=== PATIENT | female | born 1980 | race American Indian/Alaskan Native ===

== ENCOUNTER 2018-09-26 18:46 | Day surgery (SDC) | payer BC ==
[2018-09-26] MEDS ORDERED: Sodium Chloride 0.9% 10 ML Syringe FLUSH PRN ×2 (19:31→23:56)
[2018-09-26] MEDS ORDERED: HYDROmorphone 1 MG/ML Syringe IVPUSH ONE ×2 (19:31→21:48)
[2018-09-26] MEDS ORDERED: Ondansetron 4 MG/2 ML SDV IVPUSH ONE (19:31)
--- NOTE | 2018-09-26 19:51 | EDM.PDOC ---
ED HPI GENERAL MEDICAL PROBLEM - General Chief Complaint: Abdominal Pain Stated Complaint: PAIN RIGHT SIDE Time Seen by Provider: 09/26/18 19:21 Source of Information: Reports: Patient, RN Notes Reviewed - History of Present Illness INITIAL COMMENTS - FREE TEXT/NARRATIVE: 38 year old female with onset of R flank and R abd pain about 6 hours ago radiating to R back and also to R groin. Pain is achy, becoming more severe, does not go away. No nausea, vomiting, fever, chills or voiding sx. Pain does not go to L abd or back. Has had prior C section but no other prior surgeries. Does not believe she is . Pain is worse with walking, motion, last meal about 6 hrs ago. Right Flank Pain Score (Numeric/FACES): 10 - Related Data Allergies Allergy/AdvReac Type Severity Reaction Status Date / Time No Known Allergies Allergy Verified 09/26/18 18:58 Home Meds: Home Meds . [No Known Home Meds] 09/26/18 [History] Past Medical History - Past Surgical History Female Surgical History: Reports: Section Social & Family History - Tobacco Use Smoking Status *Q: Never Smoker Second Hand Smoke Exposure: No - Caffeine Use Caffeine Use: Reports: Coffee - Recreational Drug Use Recreational Drug Use: No ED ROS GENERAL - Review of Systems Review Of Systems: See Below Constitutional: Denies: Fever, Chills, Diaphoresis HEENT: Reports: No Symptoms Respiratory: Denies: Shortness of Breath Cardiovascular: Denies: Chest Pain GI/Abdominal: Reports: Abdominal Pain (R flank radiating to R groin). Denies: Constipation, Diarrhea, Melena, Nausea, Vomiting : Reports: No Symptoms Musculoskeletal: Reports: Back Pain Skin: Reports: No Symptoms Neurological: Reports: No Symptoms ED EXAM, RENAL/ - Physical Exam Exam: See Below General Appearance: Alert, Moderate Distress Eye Exam: Bilateral Eye: PERRL Throat/Mouth: Normal Inspection, Normal Oropharynx Head: Atraumatic. No: Facial Swelling Neck: Supple, Full Range of Motion Respiratory/Chest: No Respiratory Distress, Lungs Clear, Normal Breath Sounds Cardiovascular: Regular Rate, Rhythm GI/Abdominal: Soft, Rebound (mild), Tender (mild to moderate tenderness R upper and R lower abd, L abd nontender). No: Guarding Back Exam: CVA Tenderness (R) Extremities: Normal Inspection Neurological: Alert, Oriented, No Motor/Sensory Deficits Skin Exam: Warm, Dry, Normal Color Course - Vital Signs Last Recorded V/S: Last Vital Signs Temp 98.9 F 09/26/18 18:58 Pulse 85 09/26/18 18:58 Resp 24 H 09/26/18 22:12 BP 161/101 H 09/26/18 18:58 Pulse Ox 95 09/26/18 22:12 - Orders/Labs/Meds Orders: Active Orders 24 hr Category Date Time Status Peripheral IV Care [RC] . DIRECTED Care 09/26/18 19:32 Active Sodium Chloride 0.9% [Normal Saline] 1,000 ml Med 09/26/18 21:30 Active IV ONETIME Sodium Chloride 0.9% [Saline Flush] Med 09/26/18 19:31 Active 10 ml FLUSH ASDIRECTED PRN Peripheral IV Insertion Adult [OM.PC] Stat Oth 09/26/18 19:31 Ordered Schedule Procedure [COMM] Stat Oth 09/26/18 21:46 Ordered Schedule Procedure [COMM] Urgent Oth 09/26/18 21:55 Ordered Medication Orders Sodium Chloride (Normal Saline) 1,000 mls @ 999 mls/hr IV ONETIME KISHOR Last Admin: 09/26/18 21:39 Dose: 999 mls/hr Sodium Chloride (Saline Flush) 10 ml FLUSH ASDIRECTED PRN PRN Reason: Keep Vein Open Last Admin: 09/26/18 19:44 Dose: 10 ml Labs: Laboratory Tests 09/26/18 09/26/18 09/26/18 Range/Units 19:10 19:10 19:10 WBC 12.67 H (3.98-10.04) K/mm3 RBC 5.46 H (3.98-5.22) M/mm3 Hgb 13.2 (11.2-15.7) gm/L Hct 41.5 (34.1-44.9) % MCV 76.0 L (79.4-94.8) fl MCH 24.2 L (25.6-32.2) pg MCHC 31.8 L (32.2-35.5) g/dl RDW Std Deviation 41.0 (36.4-46.3) fL Plt Count 255 (182-369) K/mm3 MPV 10.1 (9.4-12.3) fl Neutrophils % (Manual) 71 H (40-60) % Band Neutrophils % 1 (0-10) % Lymphocytes % (Manual) 17 L (20-40) % Atypical Lymphs % 0 % Monocytes % (Manual) 8 (2-10) % Eosinophils % (Manual) 3 (0.7-5.8) % Basophils % (Manual) 0 L (0.1-1.2) Platelet Estimate Adequate RBC Morph Comment Normal Sodium 140 (136-145) mEq/L Potassium 3.9 (3.5-5.1) mEq/L Chloride 103 (98-107) mEq/L Carbon Dioxide 27 (21-32) mEq/L Anion Gap 13.9 (5-15) BUN 12 (7-18) mg/dL Creatinine 0.9 (0.55-1.02) mg/dL Est Cr Clr Drug Dosing 89.85 mL/min Estimated GFR (MDRD) > 60 (>60) mL/min BUN/Creatinine Ratio 13.3 L (14-18) Glucose 118 H (74-106) mg/dL Calcium 9.2 (8.5-10.1) mg/dL Total Bilirubin 0.4 (0.2-1.0) mg/dL AST 23 (15-37) U/L ALT 28 (14-59) U/L Alkaline Phosphatase 109 (46-116) U/L C-Reactive Protein 4.1 H* (<1.0) mg/dL Total Protein 8.4 H (6.4-8.2) g/dl Albumin 3.6 (3.4-5.0) g/dl Globulin 4.8 gm/dL Albumin/Globulin Ratio 0.8 L (1-2) HCG, Qual Negative (NEGATIVE) Urine Color (Yellow) Urine Appearance (Clear) Urine pH (5.0-8.0) Ur Specific [place] (1.005-1.030) Urine Protein (Negative) Urine Glucose (UA) (Negative) Urine Ketones (Negative) Urine Occult Blood (Negative) Urine Nitrite (Negative) Urine Bilirubin (Negative) Urine Urobilinogen (0.2-1.0) Ur Leukocyte Esterase (Negative) Urine RBC (0-5) /hpf Urine WBC (0-5) /hpf Ur Epithelial Cells Ur Squamous Epith Cells (0-5) /hpf Urine Bacteria (FEW) /hpf Urine Mucus (FEW) /hpf 09/26/18 Range/Units 19:25 WBC (3.98-10.04) K/mm3 RBC (3.98-5.22) M/mm3 Hgb (11.2-15.7) gm/L Hct (34.1-44.9) % MCV (79.4-94.8) fl MCH (25.6-32.2) pg MCHC (32.2-35.5) g/dl RDW Std Deviation (36.4-46.3) fL Plt Count (182-369) K/mm3 MPV (9.4-12.3) fl Neutrophils % (Manual) (40-60) % Band Neutrophils % (0-10) % Lymphocytes % (Manual) (20-40) % Atypical Lymphs % % Monocytes % (Manual) (2-10) % Eosinophils % (Manual) (0.7-5.8) % Basophils % (Manual) (0.1-1.2) Platelet Estimate RBC Morph Comment Sodium (136-145) mEq/L Potassium (3.5-5.1) mEq/L Chloride (98-107) mEq/L Carbon Dioxide (21-32) mEq/L Anion Gap (5-15) BUN (7-18) mg/dL Creatinine (0.55-1.02) mg/dL Est Cr Clr Drug Dosing mL/min Estimated GFR (MDRD) (>60) mL/min BUN/Creatinine Ratio (14-18) Glucose (74-106) mg/dL Calcium (8.5-10.1) mg/dL Total Bilirubin (0.2-1.0) mg/dL AST (15-37) U/L ALT (14-59) U/L Alkaline Phosphatase (46-116) U/L C-Reactive Protein (<1.0) mg/dL Total Protein (6.4-8.2) g/dl Albumin (3.4-5.0) g/dl Globulin gm/dL Albumin/Globulin Ratio (1-2) HCG, Qual (NEGATIVE) Urine Color Yellow (Yellow) Urine Appearance Slt cloudy H (Clear) Urine pH 5.5 (5.0-8.0) Ur Specific [place] > or = 1.030 (1.005-1.030) Urine Protein 1+ H (Negative) Urine Glucose (UA) Negative (Negative) Urine Ketones Trace H (Negative) Urine Occult Blood Negative (Negative) Urine Nitrite Negative (Negative) Urine Bilirubin Negative (Negative) Urine Urobilinogen 0.2 (0.2-1.0) Ur Leukocyte Esterase Negative (Negative) Urine RBC 0-5 (0-5) /hpf Urine WBC 0-5 (0-5) /hpf Ur Epithelial Cells Not Reportable Ur Squamous Epith Cells 0-5 (0-5) /hpf Urine Bacteria Few (FEW) /hpf Urine Mucus Moderate H (FEW) /hpf Meds: Medications Generic Name Dose Route Start Last Admin Trade Name Freq PRN Reason Stop Dose Admin Sodium Chloride 1,000 mls @ 999 mls/hr 09/26/18 21:30 09/26/18 21:39 Normal Saline IV 999 mls/hr ONETIME KISHOR Administration Sodium Chloride 10 ml 09/26/18 19:31 09/26/18 19:44 Saline Flush FLUSH 10 ml ASDIRECTED PRN Administration Keep Vein Open Discontinued Medications Generic Name Dose Route Start Last Admin Trade Name Freq PRN Reason Stop Dose Admin Dexamethasone Confirm 09/26/18 21:54 Dexamethasone Administered 09/26/18 21:55 Dose 20 mg .ROUTE .STK-MED ONE Fentanyl Confirm 09/26/18 21:54 Sublimaze Administered 09/26/18 21:55 Dose 250 mcg .ROUTE .STK-MED ONE Hydromorphone HCl 1 mg 09/26/18 19:31 09/26/18 19:42 Dilaudid IVPUSH 09/26/18 19:32 1 mg ONETIME ONE Administration Hydromorphone HCl 0.5 mg 09/26/18 21:48 09/26/18 21:57 Dilaudid IVPUSH 09/26/18 21:49 0.5 mg ONETIME ONE Administration Ceftriaxone Sodium 1 gm/ 100 mls @ 200 mls/hr 09/26/18 21:46 09/26/18 21:56 Sodium Chloride IV 09/26/18 22:15 200 mls/hr ONETIME ONE Administration Lidocaine HCl Confirm 09/26/18 21:54 Xylocaine-Mpf 1% Administered 09/26/18 21:55 Dose 4 ml .ROUTE .STK-MED ONE Metoclopramide HCl 10 mg 09/26/18 21:32 09/26/18 21:38 Reglan IVPUSH 09/26/18 21:33 10 mg ONETIME ONE Administration Midazolam HCl Confirm 09/26/18 21:54 Versed 1 Mg/Ml Administered 09/26/18 21:55 Dose 2 mg .ROUTE .STK-MED ONE Ondansetron HCl 4 mg 09/26/18 19:31 09/26/18 19:43 Zofran IVPUSH 09/26/18 19:32 4 mg ONETIME ONE Administration Ondansetron HCl Confirm 09/26/18 21:54 Zofran Administered 09/26/18 21:55 Dose 4 mg .ROUTE .STK-MED ONE Propofol Confirm 09/26/18 21:54 Diprivan 20 Ml Administered 09/26/18 21:55 Dose 200 mg .ROUTE .STK-MED ONE Rocuronium [place] Confirm 09/26/18 21:54 Zemuron Administered 09/26/18 21:55 Dose 50 mg .ROUTE .STK-MED ONE Succinylcholine Chloride Confirm 09/26/18 21:55 Succinylcholine In Ns Pf Administered 09/26/18 21:56 Dose 100 mg .ROUTE .STK-MED ONE - Re-Assessments/Exams Free Text/Narrative Re-Assessment/Exam: 09/26/18 21:30. Sx were somewhat suggestive for kidney stone with pain radiating to back and toward R groin. CT abd, pelvis without contrast does not show any sign of stone, does show inflamation around appendix and mild swelling of appendix suggestive for acute appendicitis. I have discussed this with Dr Saini, General Surgeon manager occupational will evaluate patient with plan to go to OR for appendectomy. Departure - Departure Time of Disposition: 21:30 Disposition: DC/Tfer to [facility] Condition: Fair Clinical Impression: Appendicitis Qualifiers: Appendicitis type: acute appendicitis Acute appendicitis type: with localized peritonitis Appendicitis gangrene presence: unspecified whether gangrene present Appendicitis perforation presence: unspecified whether perforation present Appendicitis abscess presence: unspecified whether abscess present Qualified Code(s): K35.30 - Acute appendicitis with localized peritonitis, without perforation or gangrene - Discharge Information - My Orders Last 24 Hours: My Active Orders 09/26/18 19:31 Sodium Chloride 0.9% [Saline Flush] 10 ml FLUSH ASDIRECTED PRN Peripheral IV Insertion Adult [OM.PC] Stat 03/19/19 19:32 Peripheral IV Care [RC] . DIRECTED 09/26/18 21:30 Sodium Chloride 0.9% [Normal Saline] 1,000 ml IV ONETIME 09/26/18 21:46 Schedule Procedure [COMM] Stat - Assessment/Plan Last 24 Hours: My Active Orders 09/26/18 19:31 Sodium Chloride 0.9% [Saline Flush] 10 ml FLUSH ASDIRECTED PRN Peripheral IV Insertion Adult [OM.PC] Stat 09/26/18 19:32 Peripheral IV Care [RC] . DIRECTED 09/26/18 21:30 Sodium Chloride 0.9% [Normal Saline] 1,000 ml IV ONETIME 09/26/18 21:46 Schedule Procedure [COMM] Stat
--- NOTE | 2018-09-26 21:14 | CT ---
CT abdomen and pelvis Technique: Multiple axial sections were obtained from above the dome of the diaphragm inferiorly through the pubic symphysis. Intravenous and oral contrast was not utilized. Study has been performed as a ureteral stone protocol. Findings: Details are slightly limited secondary to patient body habitus. Slight inflammatory change is believed to be present within the right lower abdomen which appears to surround a slightly enlarged appendix suspicious for early appendicitis. Kidneys show no abnormal calcifications. No ureteral dilatation or ureteral stone is seen. Visualized lung bases show nothing acute. Noncontrast appearance of the liver and spleen appear within normal limits. Gallbladder contains no calcified gallstones. Adrenal glands show no nodule. Pancreas is within normal limits. Aorta shows no aneurysm. No retroperitoneal adenopathy or mesenteric abnormalities are otherwise seen. No pelvic mass or adenopathy is seen. No free fluid is noted. Bone window settings were reviewed which shows scattered degenerative change within the spine. Disc herniation appears to be present at L5-S1. Impression: 1. Findings suspicious for early appendicitis. 2. No renal calculi, ureteral dilatation or ureteral stone is seen. 3. Other incidental findings as noted above. Diagnostic code #5
[2018-09-26] MEDS ORDERED: Sodium Chloride 0.9% 1,000 ML IV SCH (21:30)
[2018-09-26] MEDS ORDERED: Metoclopramide 10 MG/2 ML SDV IVPUSH ONE (21:32)
[2018-09-26] MEDS ORDERED: cefTRIAXone 1 GM in Sodium Chloride 0.9% 100 ML IV ONE (21:46)
[2018-09-26] MEDS ORDERED: Dexamethasone 4 MG/ML 5 ML MDV ONE (21:54)
[2018-09-26] MEDS ORDERED: fentaNYL 250 MCG/5 ML SDV ONE (21:54)
[2018-09-26] MEDS ORDERED: Ondansetron 4 MG/2 ML SDV ONE (21:54)
[2018-09-26] MEDS ORDERED: Propofol 200 MG/20 ML SDV ONE (21:54)
[2018-09-26] MEDS ORDERED: Rocuronium 50 MG/5 ML Vial ONE (21:54)
[2018-09-26] MEDS ORDERED: Lidocaine 1% PF 2 ML SDV ONE (21:54)
[2018-09-26] MEDS ORDERED: Midazolam 1 MG/ML 2 ML SDV ONE (21:54)
[2018-09-26] MEDS ORDERED: Succinylcholine/Normal Saline 100 MG/5 ML Syringe ONE (21:55)
--- NOTE | 2018-09-26 22:08 | PCM.PREANE ---
Preanesthetic Assessment - Procedure Proposed Procedure: lap appy - Anesthesia/Transfusion/Family Hx Anesthesia History: Prior Anesthesia Without Reaction Family History of Anesthesia Reaction: No Transfusion History: No Prior Transfusion(s) - Review of Systems General: Chills (going on this afternoon) Pulmonary: Other (had a cold recently) Cardiovascular: No Symptoms Gastrointestinal: Abdominal Pain, Decreased Appetite Neurological: No Symptoms Other: Reports: Neck Pain (tension) - Physical Assessment NPO Status Date: 09/26/18 NPO Status Time: 16:00 (drank water) O2 Sat by Pulse Oximetry: 95 Respiratory Rate: 24 Vital Signs: Last Vital Signs Temp 98.9 F 09/26/18 18:58 Pulse 85 09/26/18 18:58 Resp 24 H 09/26/18 18:58 BP 161/101 H 09/26/18 18:58 Pulse Ox 95 09/26/18 18:58 Height: 5 ft 10 in Weight: 140.614 kg ASA Class: 2E Mental Status: Alert & Oriented x3 Airway Class: Mallampati = 2 Dentition: Reports: Normal Dentition Thyro-Mental Finger Breadths: 3 Mouth Opening Finger Breadths: 3 ROM/Head Extension: Full Lungs: Clear to Auscultation, Normal Respiratory Effort Cardiovascular: Regular Rate, Regular Rhythm - Lab Values: Laboratory Last Values WBC 12.67 K/mm3 (3.98-10.04) H 09/26/18 19:10 RBC 5.46 M/mm3 (3.98-5.22) H 09/26/18 19:10 Hgb 13.2 gm/L (11.2-15.7) 09/26/18 19:10 Hct 41.5 % (34.1-44.9) 09/26/18 19:10 MCV 76.0 fl (79.4-94.8) L 09/26/18 19:10 MCH 24.2 pg (25.6-32.2) L 09/26/18 19:10 MCHC 31.8 g/dl (32.2-35.5) L 09/26/18 19:10 RDW Std Deviation 41.0 fL (36.4-46.3) 09/26/18 19:10 Plt Count 255 K/mm3 (182-369) 09/26/18 19:10 MPV 10.1 fl (9.4-12.3) 09/26/18 19:10 Neutrophils % (Manual) 71 % (40-60) H 09/26/18 19:10 Band Neutrophils % 1 % (0-10) 09/26/18 19:10 Lymphocytes % (Manual) 17 % (20-40) L 09/26/18 19:10 Atypical Lymphs % 0 % 09/26/18 19:10 Monocytes % (Manual) 8 % (2-10) 09/26/18 19:10 Eosinophils % (Manual) 3 % (0.7-5.8) 09/26/18 19:10 Basophils % (Manual) 0 (0.1-1.2) L 09/26/18 19:10 Platelet Estimate Adequate 09/26/18 19:10 RBC Morph Comment Normal 09/26/18 19:10 Sodium 140 mEq/L (136-145) 09/26/18 19:10 Potassium 3.9 mEq/L (3.5-5.1) 09/26/18 19:10 Chloride 103 mEq/L (98-107) 09/26/18 19:10 Carbon Dioxide 27 mEq/L (21-32) 09/26/18 19:10 Anion Gap 13.9 (5-15) 09/26/18 19:10 BUN 12 mg/dL (7-18) 09/26/18 19:10 Creatinine 0.9 mg/dL (0.55-1.02) 09/26/18 19:10 Est Cr Clr Drug Dosing 89.85 mL/min 09/26/18 19:10 Estimated GFR (MDRD) > 60 mL/min (>60) 09/26/18 19:10 BUN/Creatinine Ratio 13.3 (14-18) L 09/26/18 19:10 Glucose 118 mg/dL (74-106) H 09/26/18 19:10 Calcium 9.2 mg/dL (8.5-10.1) 09/26/18 19:10 Total Bilirubin 0.4 mg/dL (0.2-1.0) 09/26/18 19:10 AST 23 U/L (15-37) 09/26/18 19:10 ALT 28 U/L (14-59) 09/26/18 19:10 Alkaline Phosphatase 109 U/L (46-116) 09/26/18 19:10 C-Reactive Protein 4.1 mg/dL (<1.0) H* 09/26/18 19:10 Total Protein 8.4 g/dl (6.4-8.2) H 09/26/18 19:10 Albumin 3.6 g/dl (3.4-5.0) 09/26/18 19:10 Globulin 4.8 gm/dL 09/26/18 19:10 Albumin/Globulin Ratio 0.8 (1-2) L 09/26/18 19:10 HCG, Qual Negative (NEGATIVE) 09/26/18 19:10 Urine Color Yellow (Yellow) 09/26/18 19:25 Urine Appearance Slt cloudy (Clear) H 09/26/18 19:25 Urine pH 5.5 (5.0-8.0) 09/26/18 19:25 Ur Specific [place] > or = 1.030 (1.005-1.030) 09/26/18 19:25 Urine Protein 1+ (Negative) H 09/26/18 19:25 Urine Glucose (UA) Negative (Negative) 09/26/18 19:25 Urine Ketones Trace (Negative) H 09/26/18 19:25 Urine Occult Blood Negative (Negative) 09/26/18 19:25 Urine Nitrite Negative (Negative) 09/26/18 19:25 Urine Bilirubin Negative (Negative) 09/26/18 19:25 Urine Urobilinogen 0.2 (0.2-1.0) 09/26/18 19:25 Ur Leukocyte Esterase Negative (Negative) 09/26/18 19:25 Urine RBC 0-5 /hpf (0-5) 09/26/18 19:25 Urine WBC 0-5 /hpf (0-5) 09/26/18 19:25 Ur Epithelial Cells Not Reportable 09/26/18 19:25 Ur Squamous Epith Cells 0-5 /hpf (0-5) 09/26/18 19:25 Urine Bacteria Few /hpf (FEW) 09/26/18 19:25 Urine Mucus Moderate /hpf (FEW) H 09/26/18 19:25 - Allergies Allergies/Adverse Reactions: Allergies Allergy/AdvReac Type Severity Reaction Status Date / Time No Known Allergies Allergy Verified 09/26/18 18:58 PreAnesthesia Questionnaire Cardiovascular History: Reports: None Respiratory History: Reports: None Gastrointestinal History: Reports: GERD Endocrine/Metabolic History: Reports: Obesity/BMI 30+ Oncologic (Cancer) History: Reports: None - Past Surgical History Female Surgical History: Reports: Section - History Comment History Comment: no routine meds - advil prn - SUBSTANCE USE Smoking Status *Q: Never Smoker Tobacco Use Within Last Twelve Months: No Second Hand Smoke Exposure: No Days Per Week of Alcohol Use: 0 Recreational Drug Use History: No - HOME MEDS Home Medications: Home Meds . [No Known Home Meds] 09/26/18 [History] - CURRENT (IN HOUSE) MEDS Current Meds: Current Medications Sodium Chloride (Normal Saline) 1,000 mls @ 999 mls/hr IV ONETIME KISHOR Last Admin: 09/26/18 21:39 Dose: 999 mls/hr Ceftriaxone Sodium 1 gm/ (Sodium Chloride) 100 mls @ 200 mls/hr IV ONETIME ONE Stop: 09/26/18 22:15 Last Admin: 09/26/18 21:56 Dose: 200 mls/hr Sodium Chloride (Saline Flush) 10 ml FLUSH ASDIRECTED PRN PRN Reason: Keep Vein Open Last Admin: 09/26/18 19:44 Dose: 10 ml Discontinued Medications Dexamethasone (Dexamethasone) Confirm Administered Dose 20 mg .ROUTE .STK-MED ONE Stop: 09/26/18 21:55 Fentanyl (Sublimaze) Confirm Administered Dose 250 mcg .ROUTE .STK-MED ONE Stop: 09/26/18 21:55 Hydromorphone HCl (Dilaudid) 1 mg IVPUSH ONETIME ONE Stop: 09/26/18 19:32 Last Admin: 09/26/18 19:42 Dose: 1 mg Hydromorphone HCl (Dilaudid) 0.5 mg IVPUSH ONETIME ONE Stop: 09/26/18 21:49 Last Admin: 09/26/18 21:57 Dose: 0.5 mg Lidocaine HCl (Xylocaine-Mpf 1%) Confirm Administered Dose 4 ml .ROUTE .STK-MED ONE Stop: 09/26/18 21:55 Metoclopramide HCl (Reglan) 10 mg IVPUSH ONETIME ONE Stop: 09/26/18 21:33 Last Admin: 09/26/18 21:38 Dose: 10 mg Midazolam HCl (Versed 1 Mg/Ml) Confirm Administered Dose 2 mg .ROUTE .STK-MED ONE Stop: 09/26/18 21:55 Ondansetron HCl (Zofran) 4 mg IVPUSH ONETIME ONE Stop: 09/26/18 19:32 Last Admin: 09/26/18 19:43 Dose: 4 mg Ondansetron HCl (Zofran) Confirm Administered Dose 4 mg .ROUTE .STK-MED ONE Stop: 09/26/18 21:55 Propofol (Diprivan 20 Ml) Confirm Administered Dose 200 mg .ROUTE .STK-MED ONE Stop: 09/26/18 21:55 Rocuronium [place] (Zemuron) Confirm Administered Dose 50 mg .ROUTE .STK-MED ONE Stop: 09/26/18 21:55 Succinylcholine Chloride (Succinylcholine In Ns Pf) Confirm Administered Dose 100 mg .ROUTE .STK-MED ONE Stop: 09/26/18 21:56
[2018-09-26] MEDS ORDERED: Phenylephrine/Normal Saline 100 MCG/ML 10 ML Syringe ONE (22:47)
[2018-09-26] MEDS ORDERED: Lactated Ringers 1,000 ML ONE (22:48)
[2018-09-26] MEDS ORDERED: Ondansetron 4 MG/2 ML SDV IVPUSH PRN (22:49)
[2018-09-26] MEDS ORDERED: HYDROmorphone 0.5 MG/0.5 ML Syringe IVPUSH PRN (22:49)
[2018-09-26] MEDS ORDERED: Haloperidol Lactate 5 MG/ML SDV IVPUSH ONE (22:49)
[2018-09-26] MEDS ORDERED: fentaNYL 100 MCG/2 ML SDV IVPUSH PRN (22:49)
[2018-09-26] MEDS ORDERED: Neostigmine Methylsulfate 1 MG/ML 5 ML Syringe ONE (23:04)
[2018-09-26] MEDS ORDERED: Ketorolac 30 MG/ML SDV ONE (23:21)
--- NOTE | 2018-09-26 23:50 | PCM.POSTAN ---
POST ANESTHESIA ASSESSMENT - MENTAL STATUS Mental Status: Alert, Oriented - VITAL SIGNS Pulse Rate: 121 SaO2: 94 Resp Rate: 11 Blood Pressure: 138/64 Temperature: 98.8 F - RESPIRATORY Respiratory Status: Respiratory Rate WNL, Airway Patent, O2 Saturation Stable, Supplemental Oxygen - CARDIOVASCULAR CV Status: Pulse Rate WNL, Blood Pressure Stable - GASTROINTESTINAL GI Status: No Symptoms - PAIN Pain Score: 0 (feels better-) - POST OP HYDRATION Hydration Status: Adequate & Stable
[2018-09-26] MEDS ORDERED: Morphine 2 MG/ML Syringe IVPUSH PRN (23:53)
[2018-09-26] MEDS ORDERED: Acetaminophen/oxyCODONE 325-5 MG Tab PO PRN (23:53)
--- NOTE | 2018-09-26 23:53 | OR ---
DATE OF OPERATION: 09/26/2018 SURGEON: Rico Saini MD PREOPERATIVE DIAGNOSIS: Acute appendicitis. POSTOPERATIVE DIAGNOSIS: Acute appendicitis. OPERATION PERFORMED: Laparoscopic appendectomy. ANESTHESIA: General. ESTIMATED BLOOD LOSS: 20 mL. SPECIMEN: Appendix. INDICATIONS FOR PROCEDURE: This 38-year-old female has had a 12-hour history of abdominal pain. White blood cell count is elevated, and CT scan shows acute appendicitis. DESCRIPTION OF PROCEDURE: After adequate preparation, a supraumbilical trocar was placed, and the abdomen was insufflated. A 5-mm camera was introduced under direct vision. Two other trocars were placed under direct vision and no organ injury was noted. The appendix was identified and it was certainly acutely inflamed. The appendix was dissected free from the surrounding structures. A 45-mm stapling device was used to amputate the base of the cecum and appendix junction. The mesoappendix was then also stapled. Hemostasis was adequate and was controlled with cautery. There was some serous fluid and that was drained. It was collected around the appendix area, this was irrigated and suctioned clear. No other intra-abdominal abnormalities were noted. However, this is a morbidly obese patient, and it was difficult to see anything else. The appendix was brought out through the upper trocar site after being placed within a sterile retrieval bag. The trocars were removed, abdomen was desufflated, and the skin was closed with Vicryl. LORENZO /[id number]
--- NOTE | 2018-09-27 09:37 | HP ---
DATE OF ADMISSION: 09/26/2018 HISTORY OF PRESENT ILLNESS: Introduction: This 38-year-old female has had a 7 or 8-hour history of right- sided abdominal pain, mostly located in the right lower quadrant. She presented to the emergency room. CT scan did show periappendiceal inflammation. She has an elevated white blood cell count to 12,000, and a history and physical compatible with acute appendicitis. The patient has not had any prior episodes of this. She ate some pizza about 8 hours ago. Otherwise, has been n.p.o. since then. PAST MEDICAL HISTORY: The patient has no allergies. CURRENT MEDICATIONS: Occasional antacids. PAST SURGICAL HISTORY: Prior surgeries include section x2. FAMILY HISTORY: She is . She has 2 children at home. SOCIAL HISTORY: She does not smoke. REVIEW OF SYSTEMS: Negative for all systems. CARDIOPULMONARY: She has no chest pain on exertion or shortness of breath. PHYSICAL EXAMINATION: HEENT: Clear. CHEST: Lungs are clear bilaterally. CARDIAC: Heart has normal sinus rhythm. GASTROINTESTINAL: The abdomen is morbidly obese. She does have marked tenderness in the right side of the abdomen with a positive rebound and a positive Rovsing sign. No evidence of hernia or masses. EXTREMITIES: Normal. NEUROLOGIC: Intact. ASSESSMENT: Acute appendicitis. PLAN: I discussed the risks, benefits, and expected outcomes of a laparoscopic appendectomy with this patient; and I plan on proceeding to the operating room this evening as I cannot say whether it should be a priority dictation, but anyway, I will write one out, but this will go for chart later. LORENZO /[id number]
--- NOTE | 2018-09-27 11:14 | PCM48HPAN ---
Post Anesthesia Note - EVALUATION WITHIN 48HRS OF ANESTHETIC Vital Signs in Normal Range: Yes Patient Participated in Evaluation: Yes Respiratory Function Stable: Yes Airway Patent: Yes Cardiovascular Function Stable: Yes Hydration Status Stable: Yes Pain Control Satisfactory: Yes Nausea and Vomiting Control Satisfactory: Yes Mental Status Recovered: Yes
--- NOTE | 2018-09-27 11:28 | PCM.SN ---
- Free Text/Narrative Note: Stable POD#1 Pain controlled. PO intake adequate. Wounds clean and dry. Can discharge now. No restrictions on diet or activity. FU is increased pain or fever. Percocet #20 given for pain
== END 2018-09-27 12:32 | disposition home or self-care (01) ==
LOC: JD.ED 18:46 → JD.SDS 21:50 → JD.MS 09-27 01:03 → JD.SDS 09-27 12:32
PROVIDERS: ATTEND Surgery
DX: K35.32 Acute appendicitis with perforation, localized peritonitis, and gangrene, without abscess (principal); E66.9 Obesity, unspecified; Z68.42 Body mass index [BMI] 45.0-49.9, adult; K21.9 Gastro-esophageal reflux disease without esophagitis
CPT/HCPCS: 36415; 44970; 74176; 80053; 81001; 84703; 85007; 85027; 86140; 96365; 96375; 96376; 99285; A9270; J0330; J0696; J1100; J1170; J1885; J2001; J2250; J2370; J2405; J2704; J2710; J2765; J3010; J7030; J7040; J7120; 00840; 99284